=== PATIENT | male | born 1945 | race Caucasian/White ===

== ENCOUNTER 2021-06-21 04:20 | Inpatient (IN) | payer OTHER ==
[~2021-06-21] VITALS: Ht 193 cm; Wt 101.8 kg
[2021-06-21] VITALS (10 sets, daily range): BP systolic 106–151; BP diastolic 65–89
[2021-06-21 04:42] LABS: ABG BASE EXCESS 5.6 mmol/L (-2.0-3.0); ABG HCO3 29.6 mmol/L (21.0-28.0); ABG OXYGEN SATURATION 94.2 % (95.0-99.0); ABG PCO2 41 mmHg (35-48)
[2021-06-21 05:20] LABS: BASOPHILS % (AUTO) 0.4 % (0.0-5.0); HEMATOCRIT 41.8 % (42-54); LYMPHOCYTES % (AUTO) 12.7 % (21.0-51.0); MEAN CORPUSCULAR HEMOGLOBIN 31.7 pg (27.0-33.0); MEAN CORPUSCULAR HGB CONC 34.7 g/dL (32.0-36.0); MEAN CORPUSCULAR VOLUME 91.3 fL (79-99); MONOCYTES % (AUTO) 6.1 % (3.0-13.0); NEUTROPHILS % (AUTO) 79.6 % (40.0-77.0); PLATELET COUNT (AUTO) 252 K/uL (130-400); RED BLOOD CELL COUNT(AUTO) 4.58 MIL/uL (4.50-6.20); RED CELL DISTRIBUTION WIDTH 12.9 % (11.0-15.5); WHITE BLOOD COUNT (AUTO) 5.6 K/uL (4.8-10.8)
[2021-06-21 05:25] LABS: CREATININE 1.2 mg/dL (0.5-1.5); POTASSIUM 3.5 mmol/L (3.5-5.1)
[2021-06-21 05:28] LABS: INR 1.06 (0.85-1.15); PROTHROMBIN TIME 11.5 SEC (9.6-11.6)
[2021-06-21 05:30] LABS: ALBUMIN 2.9 g/dL (3.5-5.0); BILIRUBIN,TOTAL 0.8 mg/dL (0.2-1.0); TOTAL PROTEIN, SERUM 7.6 g/dL (6.0-8.3)
[2021-06-21 05:43] LABS: B-TYPE NATRIURETIC PEPTIDE 36 pg/mL (0-100)
[2021-06-21 06:01] LABS: APPEARANCE,URINE Clear (CLEAR); BILIRUBIN,URINE Negative (NEGATIVE); COLOR,URINE Dark Yellow (YELLOW); GLUCOSE, URINE (UA) >=1000 mg/dL (NEGATIVE); KETONES,URINE Negative (NEGATIVE); LEUKOCYTE ESTERASE ,URINE Negative (NEGATIVE); NITRATE,URINE Negative (NEGATIVE); OCCULT BLOOD,URINE Negative (NEGATIVE); PH,URINE 5.5 (5.0-8.0); PROTEIN,URINE POS 2+ mg/dL (NEGATIVE)
[2021-06-21 06:17] LABS: BACTERIA,URINE Moderate /HPF (None Seen); RBC,URINE 0-1 /HPF (0-1); SQUAMOUS EPITHELIAL CELL,UR 0-2 /HPF (0-2); WBC,URINE 0-1 /HPF (0-1)
[2021-06-21] MEDS ORDERED: 0.9% NACL 250ML IVPB ONE (06:30)
[2021-06-21] MEDS ORDERED: CEFTRIAXONE 1G VIAL IVP ONE (06:30)
[2021-06-21] MEDS ORDERED: AZITHROMYCIN 500MG VIAL IVPB ONE (06:30)
[2021-06-21] MEDS ORDERED: ALBUTEROL INHALER 90MCG/INH IH ONE ×2 (06:30→09:26)
[2021-06-21] MEDS ORDERED: PHARMACY COMMUNICATION MISC SCH (08:00)
[2021-06-21] MEDS: DOXYCYCLINE 100MG+NS 250ML 250 ML IV SCH ×2 (08:00→11:30)
[2021-06-21] MEDS ORDERED: PHARMACY COMMUNICATION**REMDESIVIR MISC SCH (08:00)
[2021-06-21] MEDS ORDERED: ACETAMINOPHEN 325 MG TAB PO PRN (08:00)
[2021-06-21] MEDS ORDERED: ONDANSETRON 4MG INJ IV PRN (08:00)
[2021-06-21] MEDS: CEFTRIAXONE 1G VIAL IV SCH (08:00)
[2021-06-21] MEDS ORDERED: COMPOUND IV REFRIGERATED 1 EACH IVSOLN MISC PRN (08:30)
[2021-06-21] MEDS ORDERED: REMDESIVIR (EUA) 520 200 MG in 0.9% NACL 250ML 250 ML IV SCH (08:30)
[2021-06-21] MEDS ORDERED: DEXAMETHASONE 4 MG TAB PO SCH (09:00)
[2021-06-21] MEDS ORDERED: ENOXAPARIN SODIUM 40 MG/0.4 ML SYRINGE SQ SCH (09:00)
[2021-06-21] MEDS ORDERED: AZITHROMYCIN 500MG+NS 250ML 250 ML IV ONE (09:25)
[2021-06-21] MEDS: BARICITINIB (EUA) 2 MG TABLET PO SCH (09:46)
[2021-06-21] MEDS: FAMOTIDINE 20MG TAB PO SCH ×2 (09:46→21:02)
[2021-06-21] MEDS ORDERED: ALBUTEROL 0.083% 2.5 MG/3 ML INH IH SCH (12:00)
[2021-06-21] MEDS ORDERED: ALBUTEROL INHALER 90MCG/INH IH PRN (12:30)
[2021-06-21] MEDS: ENOXAPARIN SODIUM 60 MG/0.6 ML SQ SCH (21:03)
[2021-06-22] VITALS (7 sets, daily range): BP systolic 79–171; BP diastolic 50–89
[2021-06-22 05:38] LABS: BASOPHILS % (AUTO) 0.2 % (0.0-5.0); HEMATOCRIT 36.5 % (42-54); LYMPHOCYTES % (AUTO) 14.9 % (21.0-51.0); MEAN CORPUSCULAR HEMOGLOBIN 31.9 pg (27.0-33.0); MEAN CORPUSCULAR HGB CONC 34.2 g/dL (32.0-36.0); MEAN CORPUSCULAR VOLUME 93.1 fL (79-99); MONOCYTES % (AUTO) 7.4 % (3.0-13.0); NEUTROPHILS % (AUTO) 75.8 % (40.0-77.0); PLATELET COUNT (AUTO) 297 K/uL (130-400); RED BLOOD CELL COUNT(AUTO) 3.92 MIL/uL (4.50-6.20); RED CELL DISTRIBUTION WIDTH 13.1 % (11.0-15.5); WHITE BLOOD COUNT (AUTO) 9.3 K/uL (4.8-10.8)
[2021-06-22] MEDS: DEXAMETHASONE SOD PHOSPHATE 4 MG/ML 1ML VIAL IVP SCH ×2 (09:00→20:33)
[2021-06-22] MEDS ORDERED: DEXAMETHASONE SOD PHOSPHATE 4 MG/ML 1ML VIAL IVP SCH (09:00)
[2021-06-22] MEDS: DOXYCYCLINE 100MG+NS 250ML 250 ML IV SCH ×2 (09:41→20:33)
[2021-06-22] MEDS: CEFTRIAXONE 1G VIAL IV SCH (09:41)
[2021-06-22] MEDS: FAMOTIDINE 20MG TAB PO SCH ×2 (09:42→20:32)
[2021-06-22] MEDS: BARICITINIB (EUA) 2 MG TABLET PO SCH (09:42)
[2021-06-22] MEDS: ENOXAPARIN SODIUM 60 MG/0.6 ML SQ SCH ×2 (09:43→20:32)
[2021-06-22] MEDS: REMDESIVIR LABS MISC SCH (13:00)
[2021-06-22 13:16] LABS: ALBUMIN 2.4 g/dL (3.5-5.0); BILIRUBIN,DIRECT 0.1 mg/dL (0.0-0.3); BILIRUBIN,TOTAL 0.4 mg/dL (0.2-1.0); TOTAL PROTEIN, SERUM 6.8 g/dL (6.0-8.3)
[2021-06-22] MEDS: REMDESIVIR (EUA) 520 100 MG in 0.9% NACL 250ML 250 ML IV SCH (14:03)
[2021-06-23 04:16] VITALS: BP 124/71
[2021-06-23 04:59] LABS: BASOPHILS % (AUTO) 0.3 % (0.0-5.0); HEMATOCRIT 40.6 % (42-54); LYMPHOCYTES % (AUTO) 14.3 % (21.0-51.0); MEAN CORPUSCULAR HEMOGLOBIN 31.6 pg (27.0-33.0); MEAN CORPUSCULAR HGB CONC 33.5 g/dL (32.0-36.0); MEAN CORPUSCULAR VOLUME 94.2 fL (79-99); MONOCYTES % (AUTO) 5.6 % (3.0-13.0); NEUTROPHILS % (AUTO) 77.8 % (40.0-77.0); PLATELET COUNT (AUTO) 348 K/uL (130-400); RED BLOOD CELL COUNT(AUTO) 4.31 MIL/uL (4.50-6.20); RED CELL DISTRIBUTION WIDTH 13.2 % (11.0-15.5)
[2021-06-23 05:41] LABS: ALBUMIN 2.7 g/dL (3.5-5.0); BILIRUBIN,DIRECT 0.1 mg/dL (0.0-0.3); CRP QUANTITATIVE 79.1 mg/L (0.00-9.0); TOTAL PROTEIN, SERUM 7.4 g/dL (6.0-8.3)
[2021-06-23] MEDS: REMDESIVIR LABS MISC SCH (06:00)
[2021-06-23 06:35] LABS: BILIRUBIN,TOTAL 0.5 mg/dL (0.2-1.0)
[2021-06-23 08:57] VITALS: BP 151/76
[2021-06-23] MEDS: CEFTRIAXONE 1G VIAL IV SCH (09:54)
[2021-06-23] MEDS: DOXYCYCLINE 100MG+NS 250ML 250 ML IV SCH ×2 (09:54→20:24)
[2021-06-23] MEDS: BARICITINIB (EUA) 2 MG TABLET PO SCH (09:55)
[2021-06-23] MEDS: DEXAMETHASONE SOD PHOSPHATE 4 MG/ML 1ML VIAL IVP SCH ×2 (09:55→20:24)
[2021-06-23] MEDS: FAMOTIDINE 20MG TAB PO SCH ×2 (09:55→20:24)
[2021-06-23] MEDS: ENOXAPARIN SODIUM 60 MG/0.6 ML SQ SCH ×2 (09:56→20:24)
[2021-06-23 11:26] VITALS: BP 154/92
[2021-06-23] MEDS: REMDESIVIR (EUA) 520 100 MG in 0.9% NACL 250ML 250 ML IV SCH (13:00)
[2021-06-23 16:14] VITALS: BP 146/73
[2021-06-23 20:00] VITALS: BP 129/80
[2021-06-23 23:51] VITALS: BP 147/81
[2021-06-24 04:00] VITALS: BP 143/86
[2021-06-24 05:00] LABS: BASOPHILS % (AUTO) 0.2 % (0.0-5.0); LYMPHOCYTES % (AUTO) 13.3 % (21.0-51.0); MEAN CORPUSCULAR HEMOGLOBIN 31.7 pg (27.0-33.0); MEAN CORPUSCULAR HGB CONC 33.8 g/dL (32.0-36.0); MEAN CORPUSCULAR VOLUME 93.9 fL (79-99); MONOCYTES % (AUTO) 7.4 % (3.0-13.0); NEUTROPHILS % (AUTO) 76.8 % (40.0-77.0); PLATELET COUNT (AUTO) 348 K/uL (130-400); RED BLOOD CELL COUNT(AUTO) 3.94 MIL/uL (4.50-6.20); RED CELL DISTRIBUTION WIDTH 13.2 % (11.0-15.5); WHITE BLOOD COUNT (AUTO) 6.5 K/uL (4.8-10.8)
[2021-06-24 05:32] LABS: ALBUMIN 2.5 g/dL (3.5-5.0); BILIRUBIN,DIRECT 0.1 mg/dL (0.0-0.3); BILIRUBIN,TOTAL 0.4 mg/dL (0.2-1.0); CRP QUANTITATIVE 46.9 mg/L (0.00-9.0); TOTAL PROTEIN, SERUM 6.8 g/dL (6.0-8.3)
[2021-06-24 06:00] LABS: POTASSIUM 3.7 mmol/L (3.5-5.1)
[2021-06-24] MEDS: REMDESIVIR LABS MISC SCH (06:00)
[2021-06-24 08:00] VITALS: BP 171/86
[2021-06-24] MEDS: CEFTRIAXONE 1G VIAL IV SCH (08:53)
[2021-06-24] MEDS: DOXYCYCLINE 100MG+NS 250ML 250 ML IV SCH (08:53)
[2021-06-24] MEDS: DEXAMETHASONE SOD PHOSPHATE 4 MG/ML 1ML VIAL IVP SCH ×2 (08:54→20:33)
[2021-06-24] MEDS: ENOXAPARIN SODIUM 60 MG/0.6 ML SQ SCH ×2 (08:54→20:36)
[2021-06-24] MEDS: BARICITINIB (EUA) 2 MG TABLET PO SCH (08:54)
[2021-06-24] MEDS: FAMOTIDINE 20MG TAB PO SCH ×2 (08:54→20:33)
[2021-06-24 11:49] VITALS: BP 152/83
[2021-06-24] MEDS: REMDESIVIR (EUA) 520 100 MG in 0.9% NACL 250ML 250 ML IV SCH (13:55)
[2021-06-24 16:00] VITALS: BP 164/65
[2021-06-24 19:45] VITALS: BP 159/87
[2021-06-24 23:45] VITALS: BP 115/84
[2021-06-25 04:05] VITALS: BP 140/66
[2021-06-25 05:27] LABS: LYMPHOCYTES % (AUTO) 14.2 % (21.0-51.0); MEAN CORPUSCULAR HEMOGLOBIN 31.7 pg (27.0-33.0); MEAN CORPUSCULAR HGB CONC 33.3 g/dL (32.0-36.0); MEAN CORPUSCULAR VOLUME 95.2 fL (79-99); MONOCYTES % (AUTO) 6.4 % (3.0-13.0); NEUTROPHILS % (AUTO) 75.8 % (40.0-77.0); PLATELET COUNT (AUTO) 309 K/uL (130-400); RED BLOOD CELL COUNT(AUTO) 3.78 MIL/uL (4.50-6.20); RED CELL DISTRIBUTION WIDTH 13.2 % (11.0-15.5); WHITE BLOOD COUNT (AUTO) 5.9 K/uL (4.8-10.8)
[2021-06-25 05:50] LABS: ALBUMIN 2.5 g/dL (3.5-5.0); BILIRUBIN,DIRECT 0.1 mg/dL (0.0-0.3); BILIRUBIN,TOTAL 0.5 mg/dL (0.2-1.0); CRP QUANTITATIVE 30.4 mg/L (0.00-9.0); POTASSIUM 3.9 mmol/L (3.5-5.1); TOTAL PROTEIN, SERUM 5.9 g/dL (6.0-8.3)
[2021-06-25] MEDS: REMDESIVIR LABS MISC SCH (06:00)
[2021-06-25 07:45] VITALS: BP 173/82
[2021-06-25] MEDS: ENOXAPARIN SODIUM 60 MG/0.6 ML SQ SCH ×2 (09:48→20:26)
[2021-06-25] MEDS: FAMOTIDINE 20MG TAB PO SCH ×2 (09:48→20:25)
[2021-06-25] MEDS: BARICITINIB (EUA) 2 MG TABLET PO SCH (09:48)
[2021-06-25] MEDS: DEXAMETHASONE SOD PHOSPHATE 4 MG/ML 1ML VIAL IVP SCH ×2 (09:49→20:25)
[2021-06-25] MEDS ORDERED: AMLODIPINE 5 MG TAB PO SCH (11:30)
[2021-06-25 11:45] VITALS: BP 148/75
[2021-06-25] MEDS: REMDESIVIR (EUA) 520 100 MG in 0.9% NACL 250ML 250 ML IV SCH (13:52)
[2021-06-25 16:00] VITALS: BP 166/96
[2021-06-25 19:08] VITALS: BP 111/59
[2021-06-26 00:10] VITALS: BP 165/94
[2021-06-26 04:00] VITALS: BP 178/104
[2021-06-26] MEDS ORDERED: HYDRALAZINE 20MG/ML VIAL ONE (04:32)
[2021-06-26] MEDS ORDERED: HYDRALAZINE 20MG/ML VIAL IV SCH (05:00)
[2021-06-26 06:05] VITALS: BP 125/66
[2021-06-26 06:18] LABS: ALBUMIN 2.6 g/dL (3.5-5.0); BILIRUBIN,DIRECT 0.2 mg/dL (0.0-0.3); BILIRUBIN,TOTAL 0.6 mg/dL (0.2-1.0); TOTAL PROTEIN, SERUM 6.7 g/dL (6.0-8.3)
[2021-06-26 07:42] VITALS: BP 141/64
[2021-06-26] MEDS: DEXAMETHASONE SOD PHOSPHATE 4 MG/ML 1ML VIAL IVP SCH (08:20)
[2021-06-26] MEDS: ENOXAPARIN SODIUM 60 MG/0.6 ML SQ SCH (08:20)
[2021-06-26] MEDS: BARICITINIB (EUA) 2 MG TABLET PO SCH (08:20)
[2021-06-26] MEDS: FAMOTIDINE 20MG TAB PO SCH (08:20)
[2021-06-26] MEDS ORDERED: APIX2.5T PO (08:41)
[2021-06-26] MEDS ORDERED: PANT40TA55 PO (08:41)
[2021-06-26] MEDS ORDERED: DEXA6TAB7 PO (08:41)
[2021-06-26] MEDS ORDERED: DEXAMETHASONE SOD PHOSPHATE 4 MG/ML 1ML VIAL IVP SCH (09:00)
[2021-06-26 09:28] LABS: HEMOGLOBIN A1C 7.5 % (4.0-6.0)
[2021-06-26] MEDS ORDERED: METF-444 PO (09:51)
== END 2021-06-26 14:00 | disposition home or self-care (01) | DRG 177 ==
LOC: EDH 04:20 → EDHIP 07:50 → 4BH 22:10 → 4AH 06-24 17:58
PROVIDERS: ADMIT Internal Medicine; ATTEND Internal Medicine
PROC: XW033E5 Introduction of Remdesivir Anti-infective into Peripheral Vein, Percutaneous Approach, New Technology Group 5 (ICD-10-PCS; principal; 2021-06-21)
PROC: XW0DXM6 Introduction of Baricitinib into Mouth and Pharynx, External Approach, New Technology Group 6 (ICD-10-PCS; 2021-06-21)
DX: U07.1 COVID-19 (principal); J12.82 Pneumonia due to coronavirus disease 2019; J96.01 Acute respiratory failure with hypoxia; D68.69 Other thrombophilia; E66.3 Overweight; Z68.28 Body mass index [BMI] 28.0-28.9, adult; I10 Essential (primary) hypertension; N40.0 Benign prostatic hyperplasia without lower urinary tract symptoms; Z60.2 Problems related to living alone; Z96.651 Presence of right artificial knee joint; Z87.891 Personal history of nicotine dependence; Z88.5 Allergy status to narcotic agent; Z88.7 Allergy status to serum and vaccine; Z82.49 Family history of ischemic heart disease and other diseases of the circulatory system
CPT/HCPCS: 36415; 36600; 71045; 80048; 80053; 80076; 81001; 82803; 83036; 83605; 83880; 84145; 84484; 85025; 85378; 85610; 86140; 87040; 87088; 93005; 94760; G0378; J0360; J0456; J0696; J1100; J1650; J3490; J7050; J8540